=== PATIENT | male | born 1995 | race Caucasian/White ===

== ENCOUNTER 2019-08-27 10:11 | Emergency (ER) | payer BC, SELFPAY ==
--- NOTE | ~2019-08-27 | XR_ITS ---
EXAMINATION: XR shoulder RT min 2V DATE: 08/27/2019 10:53 INDICATION: Right shoulder pain post fall TECHNIQUE: AP internally and externally rotated, AP oblique externally rotated and axillary views of the right shoulder were obtained. COMPARISON: None FINDINGS: Normal alignment. No fracture. Glenohumeral joint is normal. Acromioclavicular joint is normal. Soft tissues are unremarkable. Visualized portions of the lungs are clear. IMPRESSION: Negative right shoulder radiographs. Reviewed, dictated and finalized at location A. [employer]
--- NOTE | 2019-08-27 10:27 | ED.UPPEXIN ---
HPI - Extremity Injury (Upper) General Chief Complaint: Extremity Injury, Upper Stated Complaint: rt shoulder injury Time Seen by Provider: 08/27/19 10:28 Source: patient and RN notes reviewed Mode of arrival: ambulatory Limitations: no limitations History of Present Illness HPI narrative: A 23 y/o male, who is a nonsmoker and nondrinker, presents to the with constant, 5/10, rt shoulder pain since last night. He states that he was walking with his laundry basket when he tripped over his cat and fell forward, landing on his rt shoulder. He reports rt shoulder pain since. He notes that he is rt handed. He denies any neck pain, back pain, TRUJILLO, numbness/ weakness and any other medical complaint at this time. MD complaint: injury to: right and shoulder Onset (ago): hour(s) (last night) Other Extremity Injury: Right: shoulder Other injuries: none Handedness: right Place: home Context: fall Associated symptoms: other (rt shoulder pain) Related Data Home Medications Medication Instructions Recorded Confirmed ibuprofen 200 mg PO Q6H PRN 08/27/19 08/27/19 Allergies Allergy/AdvReac Type Severity Reaction Status Date / Time No Known Allergies Allergy Verified 08/27/19 10:35 Review of Systems Review of Systems: Narrative: General/Constitutional: No weight loss,fever Eyes: N0: Redness,discharge Ears/Nose/Throat: No: Epistaxis,ear discharge Respiratory: Denies: Hemoptysis Gastrointestinal: No Vomiting, Bleeding-rectal Musculoskeletal: No neck pain or back pain. Reports rt shoulder pain. Skin: No Lumps, eruption Neurologic: No Focal Weakness,Sz, TRUJILLO Hematologic: Denies: Petechiae/Purpura Psychiatric: No: Suicida ideationl All Other Systems: Reviewed and Negative [facility] Past Medical History Medical History (Updated 08/27/19 @ 11:21 by Segundo Gannon MD) Healthy adult male Surgical History Surgical History (Updated 08/27/19 @ 10:42 by Chidi Palencia) No history of previous surgery Social History Social History (Updated 08/27/19 @ 10:42 by Chidi Palencia) Smoking status: Never smoker Exam Narrative: Exam Narrative: General Appearance: Well appearing, Conjunctiva clear Ears: External ear normal, Auditory canal normal Nose: Normal nose, Nares clear Mouth/Throat: Normal appearing, Normal lips Neck: Supple Respiratory: Airway patent, No respiratory distress Musculoskeletal: Normal strength (mostly intact, almost unlimited IR/ ER, flexion/extension AB-/ AD- duction by pain), Tenderness -AC joint , with mild decreased ROM, Scant swelling AC point Skin: Warm, Dry, Normal color Neurological: A&O x3, Normal affect Course Vital Signs Vital signs: Vital Signs Temperature 98.2 F 08/27/19 10:28 Pulse Rate 93 08/27/19 10:28 Respiratory Rate 16 08/27/19 10:28 Blood Pressure 131/79 08/27/19 10:28 Pulse Oximetry 100 08/27/19 10:28 Temperature 98.2 F 08/27/19 10:28 Pulse Rate 93 08/27/19 10:28 Respiratory Rate 16 08/27/19 10:28 Blood Pressure 131/79 08/27/19 10:28 Pulse Oximetry 100 08/27/19 10:28 MDM - Extremity Injury (Upper) Imaging Data Radiologist's impression: ITS Impressions Shoulder X-Ray 08/27/19 10:58 IMPRESSION: Negative right shoulder radiographs. Discharge Plan Discharge Clinical Impression: Strain of AC joint Qualifiers: Encounter type: initial encounter Laterality: right Qualified Code(s): S46.911A - Strain of unspecified muscle, fascia and tendon at shoulder and upper arm level, right arm, initial encounter Patient Disposition: Home, Self-Care Condition: Stable Instructions: Acromioclavicular Separation (ED) Prescriptions: New tramadol 50 mg tablet 50 mg PO Q6H PRN (Reason: pain) Qty: 15 RF: 1 No Action ibuprofen 200 mg Tablet 200 mg PO Q6H PRN (Reason: Pain) RF: 0 Follow-up/Referrals: UNKNOWN,DOCTOR [Primary Care Provider] - Discharge Date/Time: 08/27/19 11:28
[2019-08-27 10:28] VITALS: BP 131/79; PULSE 93; RESP 16; TEMP 36.8; O2SAT 100
== END 2019-08-27 11:28 | disposition home or self-care (01) ==
PROVIDERS: Emergency Provider Emergency Medicine
DX: S46.911A Strain of unspecified muscle, fascia and tendon at shoulder and upper arm level, right arm, initial encounter (principal); W01.198A Fall on same level from slipping, tripping and stumbling with subsequent striking against other object, initial encounter
CPT/HCPCS: 73030; 99203; G0463